=== PATIENT | male | born 1990 | race African-American/Black ===

== ENCOUNTER 2017-11-11 23:18 | Emergency (ER) | payer SELFPAY ==
[~2017-11-11] VITALS: Ht 167.6 cm; Wt 95.0 kg
[2017-11-12] MEDS ORDERED: KETOROLAC 30MG/ML VIAL IM ONE (02:15)
[2017-11-12] MEDS ORDERED: BACITRACIN ZINC OINT UDPKT TOP ONE (03:15)
[2017-11-12] MEDS ORDERED: HYDROCODONE/ACETAMINOPHEN 5/325MG TABLET PO ONE (03:15)
[2017-11-12] MEDS ORDERED: TETANUS, DIPHTHERIA, PERTUSSIS VAC/PF 0.5ML (>7YR OLD) IM ONE (03:15)
[2017-11-12] MEDS ORDERED: LIDOCAINE HCL 1% 20ML VIAL (Pyxis) INJ MC ONE (03:15)
[2017-11-12 06:59] VITALS: BP 125/57
== END 2017-11-12 07:39 | disposition home or self-care (01) ==
LOC: ER 23:18
DX: S61.218A Laceration without foreign body of other finger without damage to nail, initial encounter (principal); W25.XXXA Contact with sharp glass, initial encounter; Y93.89 Activity, other specified; Y92.89 Other specified places as the place of occurrence of the external cause; Y99.8 Other external cause status
CPT/HCPCS: 12002; 73130; 90471; 90715; 96372; 99284; J1885; J3490; X7700; Z7610